=== PATIENT | female | born 1970 | race Caucasian/White ===

== ENCOUNTER 2017-09-13 11:15 | Day surgery (SDC) | payer OTHER ==
--- NOTE | 2017-09-09 14:56 | RAD REPORT ---
EXAM DESCRIPTION: RAD - Chest Pa And Lat (2 Views) - 09/09/2017 2:48 pm CLINICAL HISTORY: Abdominal pain COMPARISON: 08/11/2017 FINDINGS: The lungs are clear. The heart is normal in size. No displaced fractures. IMPRESSION: No acute or concerning finding suspected.
[2017-09-09 15:30] LABS: Absolute Lymphocytes (CBC) 1.4 K/uL (0.7-4.9); Absolute Monocytes 0.5 K/uL (0.1-1.3); Absolute Neutrophil 4.4 K/uL (1.8-8.0); Basophils % 0.3 % (0-1.3); Hematocrit 40.5 % (36.0-45.0); Lymphocytes % 21.4 % (15.3-44.8); MCV 93.8 fL (80-100); MPV 10.8 fL (7.6-11.3); Monocytes % 7.3 % (3.3-12.3); RBC Red Blood Cell Count 4.32 M/uL (3.86-4.86)
[2017-09-09 15:38] LABS: BUN Blood Urea Nitrogen 8 mg/dL (6-20); Bicarbonate 23 mEq/L (21-31); Glucose Level 97 mg/dL (65-120); Sodium Level 138 mEq/L (135-145)
[2017-09-09 15:57] LABS: Albumin 3.5 g/dL (3.2-5.5); Bilirubin Direct 0.1 mg/dL (0-0.2); Bilirubin Total 0.3 mg/dL (0.3-1.2); Protein, Total 6.3 g/dL (6.0-8.3)
--- NOTE | 2017-09-09 17:00 | EKG ---
Test Date: 2017-09-09 Test Time: 14:49:46 Spooling Supervisor: ADÁN MEASUREMENT RESULTS: Intervals: Rate: 67 SD: 136 QRSD: 80 QT: 372 QTc: 393 Addison: P: 29 SD: 136 QRS: 35 T: 41 INTERPRETIVE STATEMENTS: Normal sinus rhythm Normal ECG Compared to ECG 08/11/2017 14:58:12 No significant changes Electronically Signed On 09-09-17 16:59:42 CDT by Kale Batista
[2017-09-13] MEDS ORDERED: CIPROFLOXACIN 400mg IV 400 MG/200 ML BAG IV ONE (11:51)
[2017-09-13] MEDS ORDERED: Ringers Lactate 1,000 ML IV ONE ×2 (11:51→13:05)
[2017-09-13] MEDS ORDERED: PROPOFOL 200 MG/20 ML VIAL IV ONE (12:03)
[2017-09-13] MEDS ORDERED: LIDOCAINE 1% MPF 5 ML VIAL ONE (12:03)
[2017-09-13] MEDS ORDERED: MIDAZOLAM HCL 2 MG/2 ML INJ ONE (12:03)
[2017-09-13] MEDS ORDERED: ROCURONIUM 50 MG/5 ML VIAL IV ONE (12:03)
[2017-09-13] MEDS ORDERED: FENTANYL CITR 250 MCG/5 ML ONE (12:17)
[2017-09-13 12:18] LABS: Albumin 3.4 g/dL (3.2-5.5); Bilirubin Direct 0.1 mg/dL (0-0.2); Bilirubin Total 0.5 mg/dL (0.3-1.2); Protein, Total 6.2 g/dL (6.0-8.3)
[2017-09-13] MEDS ORDERED: EPINEPHRINE/PF 1 MG/ML AMP ONE (12:49)
[2017-09-13] MEDS ORDERED: MOXIFLOXACIN HCL 10 DROPS/ML **OR USE OPTH ONE (12:49)
[2017-09-13] MEDS ORDERED: DUOVISC 1 KIT OPTH ONE (12:50)
[2017-09-13] MEDS ORDERED: BALANCED SALT IRRIG PLAIN 500 ML BTL IRR ONE (12:50)
[2017-09-13] MEDS ORDERED: ONDANSETRON 4 MG/2 ML VIAL ONE ×2 (13:06→13:36)
[2017-09-13] MEDS ORDERED: GLYCOPYRROLATE 0.2 MG/ML SYR ONE (13:06)
[2017-09-13] MEDS ORDERED: NEOSTIGMINE 1 MG/ML -5 ML SYRINGE ONE (13:07)
[2017-09-13] MEDS: MEPERIDINE HCL 50 MG/ML AMP ONE ×2 (13:22→13:27)
[2017-09-13] MEDS: MEPERIDINE HCL 25 MG/0.5 ML ONE ×2 (13:34→13:42)
--- NOTE | 2017-09-13 13:44 | P.BOP ---
Preoperative diagnosis: acute cholecystitis, symptomatic cholelithiasis, biliary dyskinesia, obesit Postoperative diagnosis: same, intrabdominal adhesions hx of open gastric bypass Primary procedure: 1. Laparoscopic cholecystectomy Secondary procedure: 2. laparoscopic lysis of adhesions Road Patcher: Lashawn Long) Estimated blood loss: <10cc Specimen: gb Anesthesia: General Complications: None
[2017-09-13] MEDS ORDERED: HYDROCODONE/APAP 5/325 MG TAB ONE (14:16)
--- NOTE | 2017-09-14 00:36 | OP ---
Date of Procedure: 09/13/2017 Surgeon: Chris Garcia MD Novelty Maker: DERREK Bravo. Preoperative Diagnoses: Acute cholecystitis, symptomatic cholelithiasis, biliary dyskinesia, morbid obesity, status post history of open Tahmina-en-Y gastric bypass. Postoperative Diagnoses: Acute cholecystitis, symptomatic cholelithiasis, biliary dyskinesia, morbid obesity, status post history of open Tahmina-en-Y gastric bypass, plus extensive intraabdominal adhesio ns, plus ventral hernia. Procedures: 1.Laparoscopic cholecystectomy. 2.Laparoscopic lysis of adhesions. Estimated Blood Loss: Less than 10 cc. Specimen: Gallbladder. Anesthesia: General plus local. Indications: This is the case of a 47-year-old patient with the above diagnosis. Fully explained th e benefits, alternatives, and risks of laparoscopic, possible open cholecystectomy which include but are not limited to infection, bleeding, damage to adjacent structures, anesthesia complication, olayinka docholithiasis, bile leak, pancreatitis, IL, and even . She also understands this may not relie ve any symptoms. She might need more than one surgical intervention. She understood. Signed a cons ent. The patient understands she has open Tahmina-en-Y gastric bypass. We may encounter some adhesions over that area. She understand the benefits, alternatives, and risks of lysis of adhesions. She si gned a consent. Description Of Procedure: The patient was brought to the operating room, placed in the supine positi on. Anesthesia was achieved without complication. A time-out was call. Abdomen was prepped and sophia ped in usual sterile fashion. Marcaine 0.5% injected for local anesthetic, followed by sharp incisio n of the skin in the infraumbilical region. Incision was carried down to fascia, which was opened un maria l direct vision. Peritoneum was encountered, opened under direct vision. Vicryl #1 placed inside the fascia. Roxie trocar was carefully introduced. Pneumoperitoneum was obtained. After that we n oticed extensive adhesions in the right upper quadrant epigastric region where the previous surgery w as done. So, we proceeded to place another 5-mm trocar in the right upper quadrant in a clean area a nd used a LigaSure trying to remove the adhesions to at least clean the right upper quadrant. Took s ignificant amount of time to remove these adhesions. So, once we did that, we made sure there was co mplete hemostasis, once again using the LigaSure. We proceeded to put a grasper in the fundus of the gallbladder, another grasper in the infundibulum, retracted the gallbladder in the inferolateral fas hion exposing the triangle of Calot, and obtaining critical view of safety. At that moment, I procee ded to identify the cystic duct and cystic artery and isolated free circumferentially and a connectio n between those and the gallbladder was clearly identified. I proceeded to ligate those by using at least 3 clips proximal, 1 clip distal, and ligation in the middle. Same was done with the cystic art faviola. No bile leak. No bleeding. The gallbladder was removed from liver using Bovie cauterizer and removed from abdominal cavity using EndoCatch through the umbilical incision. The area was inspected once again. The area of the clips was intact. Gallbladder fossa was intact. The area of the lysis of adhesions also with no bleeding. No enterotomies. The patient has a ventral hernia, bunch of ad hesions in that region. This is wide enough that may require a mesh placement and since in this case , we have acute cholecystitis, we are afraid that the mesh we are going to use in that area may get c ontaminated. It is right now is full with some fatty omentum on it. I do not see any intestines com ing through it, so she may have to elect the resection in the next few weeks. At that moment, I proc eeded to remove the trocars under direct vision. Deflated pneumoperitoneum. Closed the fascia with #1 Vicryl, irrigated the subcutaneous tissue, closed that with 3-0 chromic, and the skin in a subcuti cular fashion with 3-0 chromic and Steri-Strips on top. Sponge count and instrument counts were correct. The patient tolerated the procedure well. The patient was sent to Recovery in stable condition. ALBA/KYM Voice ID: [id number] Report ID: [id number]
--- NOTE | 2017-09-14 00:42 | DS ---
Date of Discharge: 09/13/2017 Diagnoses: Acute cholecystitis, symptomatic cholelithiasis, biliary dyskinesia, right upper quadrant pain, morbid obesity, intraabdominal adhesions, and ventral hernia. Procedure: Laparoscopic cholecystectomy, laparoscopic lysis of adhesions. Disposition: Home. Activity: As tolerated. No heavy lifting. Followup: Follow up in my office in 1 week. Call for appointment [phone]. Discharge Instructions: Keep area dry for 48 hours, then may shower. Keep Steri-Strips intact. Medications: Include Vicodin q.4 hours p.r.n. pain and Bactrim DS p.o. b.i.d. ALBA/KYM Voice ID: [id number] Report ID: [id number]
== END 2017-09-13 14:56 | disposition home or self-care (01) ==
LOC: OR 11:15
PROVIDERS: ATTEND Surgery
PROC: 0DNW4ZZ Release Peritoneum, Percutaneous Endoscopic Approach (ICD-10-PCS; 2017-09-13)
PROC: 0FT44ZZ Resection of Gallbladder, Percutaneous Endoscopic Approach (ICD-10-PCS; principal; 2017-09-13 13:15)
DX: K80.12 Calculus of gallbladder with acute and chronic cholecystitis without obstruction (principal); K82.8 Other specified diseases of gallbladder; K66.0 Peritoneal adhesions (postprocedural) (postinfection); K43.9 Ventral hernia without obstruction or gangrene; E66.01 Morbid (severe) obesity due to excess calories; Z98.84 Bariatric surgery status; Z79.82 Long term (current) use of aspirin; Z90.710 Acquired absence of both cervix and uterus; Z80.42 Family history of malignant neoplasm of prostate; Z80.0 Family history of malignant neoplasm of digestive organs; Z82.49 Family history of ischemic heart disease and other diseases of the circulatory system
CPT/HCPCS: 36415; 71046; 80048; 80076; 82150; 83690; 85025; 88304; 93005; J0171; J0744; J2175; J2250; J2405; J2710

== ENCOUNTER 2017-11-15 07:29 | Day surgery (SDC) | payer OTHER ==
[2017-11-11 15:04] LABS: Absolute Lymphocytes (CBC) 1.5 K/uL (0.7-4.9); Absolute Monocytes 0.5 K/uL (0.1-1.3); Absolute Neutrophil 5.2 K/uL (1.8-8.0); Basophils % 0.4 % (0-1.3); Eosinophils % 4.8 % (0-4.4); Hematocrit 41.6 % (36.0-45.0); Lymphocytes % 19.6 % (15.3-44.8); MCH 30.8 pg (27.0-35.0); MCV 95.7 fL (80-100); MPV 10.5 fL (7.6-11.3); Monocytes % 6.7 % (3.3-12.3); RBC Red Blood Cell Count 4.35 M/uL (3.86-4.86)
[2017-11-11 15:25] LABS: BUN Blood Urea Nitrogen 9 mg/dL (7-18); Bicarbonate 24 mmol/L (21-32); Glucose Level 76 mg/dL (74-106); Potassium 3.8 mmol/L (3.5-5.1); Sodium Level 142 mmol/L (136-145)
[2017-11-15] MEDS ORDERED: PROPOFOL 200 MG/20 ML VIAL IV ONE (07:58)
[2017-11-15] MEDS ORDERED: MIDAZOLAM HCL 2 MG/2 ML INJ ONE (07:59)
[2017-11-15] MEDS ORDERED: GLYCOPYRROLATE 0.2 MG/ML SYR ONE ×2 (07:59→10:51)
[2017-11-15] MEDS ORDERED: LIDOCAINE 2% MPF 5 ML VIAL ONE (08:00)
[2017-11-15] MEDS ORDERED: ROCURONIUM 50 MG/5 ML VIAL IV ONE ×2 (08:01→09:14)
[2017-11-15] MEDS ORDERED: FENTANYL CITR 250 MCG/5 ML ONE (08:01)
[2017-11-15] MEDS ORDERED: NEOSTIGMINE 1 MG/ML -5 ML SYRINGE ONE (08:03)
[2017-11-15] MEDS ORDERED: ONDANSETRON HCL 40 MG/20 ML VIAL ONE (08:03)
[2017-11-15] MEDS ORDERED: CEFAZOLIN/SWI 1gm 1 GM/10 ML SYR ONE (08:26)
[2017-11-15] MEDS ORDERED: Ringers Lactate 1,000 ML IV ONE ×2 (08:26→11:09)
[2017-11-15] MEDS ORDERED: DEXAMETHASONE 10 MG/ML VIAL ONE (09:00)
[2017-11-15] MEDS ORDERED: MORPHINE 10 MG/ML VIAL ONE (10:18)
--- NOTE | 2017-11-15 10:35 | P.BOP ---
Preoperative diagnosis: incarcerated tender incisional ventral hernias, morbid obesity Postoperative diagnosis: incarcerated tender incisional multiple ventral hernias , intrabdo adhesions Primary procedure: 1. Open repair incarcerated tender incisional multiple ventral hernias Secondary procedure: 2. hernia mesh placement Other procedure(s): 3. Extensive lysis of adhesions Mineralogy Teacher: Lashawn Long) Estimated blood loss: <20cc Specimen: hernia sac Findings: as above, see dictation Anesthesia: General Complications: None Implants: [id number] ventrallight ST w echo PS Transferred to: Recovery Room Condition: Good
[2017-11-15] MEDS ORDERED: Mastisol Adhesive Liq ONE (10:43)
[2017-11-15] MEDS: MEPERIDINE HCL 50 MG/ML AMP ONE ×6 (11:09→11:45)
[2017-11-15] MEDS ORDERED: HYDROCODONE/APAP 5/325 MG TAB ONE (12:22)
--- NOTE | 2017-11-17 03:28 | OP ---
Surgeon: Chris Garcia MD Crochet Machine Operator: DERREK Bauer. Preoperative Diagnoses: Incarcerated tender incisional ventral hernia, morbid obesity. Postoperative Diagnoses: Incarcerated tender incisional multiple ventral hernia with extensive intra abdominal adhesions. Procedures: 1.Open repair of incarcerated tender incisional multiple ventral hernias with mesh, laparoscopic ass ist. 2.Extensive lysis of adhesions. Estimated Blood Loss: Less than 20 cc. Specimen: Hernia sac. Findings: The patient has a large hernia with multiple hernia just above that all with incision exte nsive intraabdominal adhesions. This patient had an open gastric bypass surgery in the past. Implan t was 15 x [address] with Echo positioning System mesh. Anesthesia: General plus local. Indications: This is the case of a female, who came to us with a large ventral hernia, getting pain and discomfort, increasing in size. She wants that repaired. Benefits, alternatives, and risks of r epair, fully explained to the patient. Laparoscopic versus open with most likely a mesh placement wh ich include, but not limited to infection, bleeding, damage to adjacent structures, anesthesia compli cations, recurrence, chronic pain, chronic numbness, PR, and even . She also understands this m ay not relieve her symptoms. She might need more than one surgical intervention. She understands th e importance of losing weight, avoid heavy lifting to diminish the chance of recurrence. She does no t understand also the pros of an intraabdominal mesh placement and discussed that with her in details and all the questions were answered to her satisfaction. The patient understood, signed consent. T he patient brought to the operating room and placed in supine position. Anesthesia was without compl ication. Abdominal area was prepped and draped in a sterile fashion. A time-out was called. An inc ision was made right over the hernia area. The patient has a previous incision in that region. The incision was carried down to fascia. We noticed a large hernia sac present with 2 all other hernias present. The hernia sac was removed. The patient had extensive intraabdominal adhesions, may have t o be addressed laparoscopically due to the extension and how lateral they are. We were able to at le ast identify the hernia that was just next to the first 1 and included not repaired, fascia edges wer e trimmed. We did lysis of adhesions in open technique. The rest will be done laparoscopically due to the extension of it. The fascia edges were then approximated with #1 PDS in a figure-eight fashio n. We held them together and enough to put a Roxie trocar over that area which allowed us to obtain pneumoperitoneum and allows also to put under direct visualization 5 mm trocars to the left side, on e on the right side. In that area also we already visualized the area that needs to be lysed of adhe sions. We are going to need a LigaSure to do so, so we opened laparoscopic LigaSure. At this moment we proceeded to do a lysis of adhesions. Using LigaSure, we spent a significant amount of time, mor e than half an hour just to do lysis of adhesions. It was done making sure that we have complete vis ualization of it and no enterotomies done. In the upper abdomen, the patient has the effect of the ga stric bypass open technique with adhesions and even stomach adhered to the anterior abdominal wall. I am glad that was just cephalad to the area where the mesh was needed, so it does not interfere with out repair, so we did not proceed to take down the stomach since this is part of the previous surgery . Once we finished lysis of adhesions that we see exactly the defects and how to overlap this at [address] st 5 cm. We proceeded then to select the mesh with 15 cm x 20 cm. Once we selected a mesh, then we just released the suture that we have placed already and we were able to remove the Roxie trocar and placed the mesh through that same incision and we tied all the sutures except 1 to allow us to final ly at the end remove the catheter that inflated the balloon of the mesh system. Once we had that one , again we were able to obtain pneumoperitoneum by holding the last suture manually and we were able to inflate the balloon. This balloon goes nice and flat, perfectly setup since we were able to remov e some of the falciform ligament with it and nice and flat to cover the entire defect for at least 5 cm. We proceeded to secure the area using a capture first in the edges and then we deflated the ball oon, removed the balloon and we continued putting the fixation to make sure no intestines goes in bet ween the edges nice and flat against the peritoneum and fascia. At that moment, then we proceeded to tie the layers of suture in that area. We noticed that it had nice buttress feel to it. We inspect ed the area of lysis of adhesions, looks intact with no bleeding. No enterotomies. At that moment, I proceeded then to remove the pneumoperitoneum under direct visualization. Trocars were removed. S ubcutaneous layers were closed with 3-0 chromic. Since the patient has multiple spaces in that area, we do not want the seroma deformed. Then, after that subcutaneous tissue with 3-0 chromic and skin approximated. Sponge count, instrument counts were correct. The patient tolerated the procedure wel l. The patient was sent to recovery in stable condition. Diagnosis: Incarcerated tender incisional ventral hernia, morbid obesity. Procedures: Open repair of incarcerated tender incisional ventral hernia, multiple with mesh laparos copic assist, extensive lysis of adhesions. Disposition: Home. Activity: As tolerated. No heavy lifting. Followup: Follow up in my office in 1 week. Call for appointment [phone]. Keep area dry for 48 ho urs, then may shower. Medications: See orders. ALBA/KYM Voice ID: [id number] Report ID: [id number]
== END 2017-11-15 13:15 | disposition home or self-care (01) ==
LOC: OR 07:29
PROVIDERS: ATTEND Surgery
PROC: 0DNW0ZZ Release Peritoneum, Open Approach (ICD-10-PCS; 2017-11-15)
PROC: 0WUF0JZ Supplement Abdominal Wall with Synthetic Substitute, Open Approach (ICD-10-PCS; principal; 2017-11-15 08:30)
DX: K43.2 Incisional hernia without obstruction or gangrene (principal); K66.0 Peritoneal adhesions (postprocedural) (postinfection); Z98.84 Bariatric surgery status; E66.01 Morbid (severe) obesity due to excess calories
CPT/HCPCS: 36415; 80048; 85025; 88302; 88305; J0690; J1100; J2175; J2250; J2405; J2710

== ENCOUNTER 2019-07-16 13:23 | Emergency (ER) | payer BC, OTHER ==
--- NOTE | 2019-07-16 15:17 | RAD REPORT ---
EXAM DESCRIPTION: Arnaud Single View07/16/2019 2:53 pm CLINICAL HISTORY: cough COMPARISON: 2017 FINDINGS: The lungs appear clear of acute infiltrate. The heart is normal size IMPRESSION: No acute abnormalities displayed
--- NOTE | 2019-07-16 16:44 | ER ---
Nurse's Notes [facility] Name: Rhea Mc Age: 49 yrs Sex: Female : 1970 Arrival Date: 07/16/2019 Time: 13:25 Bed 13 Private MD: Fabricio Cardona H Diagnosis: Superficial thrombophlebitis Presentation: 07/16 13:34 Presenting complaint: Patient states: Diagnosed with the Flu 9 days ago. Reports ca1 feeling better, went back to working out. Reports SOB more on exertion and legs giving out during and after workout. C/o of leg pain more on the R. Transition of care: patient was not received from another setting of care. Onset of symptoms was July 16, 2019. Risk Assessment: Do you want to hurt yourself or someone else? Patient reports no desire to harm self or others. Initial Sepsis Screen: Does the patient meet any 2 criteria? No. Patient's initial sepsis screen is negative. Does the patient have a suspected source of infection? No. Patient's initial sepsis screen is negative. Care prior to arrival: None. 13:34 Method Of Arrival: Ambulatory ca1 13:34 Acuity: RENA 3 ca1 Triage Assessment: 14:00 General: Appears in no apparent distress. uncomfortable, Behavior is calm, cooperative, vc appropriate for age. Pain: Denies pain. FIRER TUNNEL KILN: 13:37 LMP N/A - Hysterectomy ca1 Historical: - Allergies: 13:37 Aspirin; ca1 - Home Meds: 13:37 Ambien Oral [Active]; ca1 - PMHx: 13:37 None; ca1 - PSHx: 13:37 Hysterectomy; Gastric Bypass; Cholecystectomy; Hernia repair; ; R ankle Surg; ca1 Shoulder Surg; - Immunization history:: Adult Immunizations up to date, Flu vaccine is not up to date. - Coronavirus screen:: The patient has NOT traveled to [place] in the past 14 days. The patient has NOT had contact with known/suspected case of Coronavirus?. - Social history:: Smoking status: Patient denies any tobacco usage or history of. - Family history:: not pertinent. - Ebola Screening: : Patient negative for fever greater than or equal to 101.5 degrees Fahrenheit, and additional compatible Ebola Virus Disease symptoms Patient denies exposure to infectious person Patient denies travel to an Ebola-affected area in the 21 days before illness onset No symptoms or risks identified at this time. - Hospitalizations: : No recent hospitalization is reported. Screenin:00 Abuse screen: Denies threats or abuse. Nutritional screening: No deficits noted. vc Tuberculosis screening: No symptoms or risk factors identified. Fall Risk None identified. Assessment: 14:30 General: Appears in no apparent distress. comfortable, Behavior is calm, cooperative, vc appropriate for age. Pain: Denies pain. Neuro: Level of Consciousness is awake, alert, obeys commands. Cardiovascular: Capillary refill < 3 seconds Patient's skin is warm and dry. Respiratory: Respiratory effort is even, unlabored, Respiratory pattern is regular, symmetrical. GI: No signs and/or symptoms were reported involving the gastrointestinal system. EENT: No signs and/or symptoms were reported regarding the EENT system. Derm: Skin temperature is warm. Musculoskeletal: Range of motion: intact in all extremities. Vital Signs: 13:37 BP 178 / 101; Pulse 101; Resp 20 S; Temp 98.5(TE); Pulse Ox 97% on R/A; Weight 136.98 ca1 kg (R); Height 5 ft. 9 in. (175.26 cm) (R); 15:00 BP 168 / 86; Pulse 98; Pulse Ox 98% on R/A; vc 16:00 BP 156 / 88; Pulse 95; Pulse Ox 98% on R/A; vc 13:37 Body Mass Index 44.60 (136.98 kg, 175.26 cm) ca1 ED Course: 13:25 Patient arrived in ED. as 13:25 Fabricio Cardona DO is Private Physician. as 13:36 Triage completed. ca1 13:37 Arm band placed on right wrist. ca1 13:56 Bonnie Zavaleta, RANDAL is Primary Nurse. vc 14:00 Patient has correct armband on for positive identification. Placed in gown. vc 14:00 No provider procedures requiring assistance completed. Patient did not have IV access vc during this emergency room visit. 14:11 Nomi Jerez MD is Attending Physician. rn 15:03 XRAY Chest (1 view) In Process Unspecified. EDMS 17:00 Extremity Venous Uni Ltd US In Process Unspecified. EDMS Administered Medications: No medications were administered Outcome: 16:43 Discharge ordered by . rn 16:50 Discharged to home ambulatory, with significant other. vc 16:50 Condition: good 16:50 Discharge instructions given to patient, Instructed on discharge instructions. 16:58 Patient left the ED. vc Signatures: Dispatcher [employer] Naty Strong Roman, MD MD rn Luz, Cleo RN RN Bonnie Celis RN RN vc
--- NOTE | 2019-07-16 16:44 | EDPHYS ---
Physician Documentation [facility] Name: Rhea Mc Age: 49 yrs Sex: Female : 1970 Arrival Date: 07/16/2019 Time: 13:25 Bed 13 Private MD: Fabricio Cardona H ED Physician Nomi Jerez HPI: 07/16 15:07 This 49 yrs old Female presents to ER via Ambulatory with complaints of rn Shortness Of Breath, Knee Swelling. 15:08 The patient presents with pain, swelling. The complaints affect the posterior aspect of rn left knee. Onset: The symptoms/episode began/occurred This week. Modifying factors: the symptoms are aggravated by movement, bending knee. Severity of symptoms: At their worst the symptoms were moderate, in the emergency department the symptoms are unchanged. The patient has not experienced similar symptoms in the past. Reports sick with flu and in bed for days last week, feels better, still coughing and a little sob, but here mainly for left leg pain behind left knee. Reports not sure if her varicose veins or blood clot. Also reports just started new exercise regimen. Feels swelling and pain behind left knee. No bony injury. Hurts upon palpation and with bending knee. No swelling below the knee. . 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 - Coronavirus screen:: The patient has NOT traveled to [place] in the past 14 days. The patient has NOT had contact with known/suspected case of Coronavirus?. - Social history:: Smoking status: Patient denies any tobacco usage or history of. - Family history:: not pertinent. - Ebola Screening: : Patient negative for fever greater than or equal to 101.5 degrees Fahrenheit, and additional compatible Ebola Virus Disease symptoms Patient denies exposure to infectious person Patient denies travel to an Ebola-affected area in the 21 days before illness onset No symptoms or risks identified at this time. - Hospitalizations: : No recent hospitalization is reported. ROS: 15:08 Constitutional: Negative for fever, chills, and weight loss, Eyes: Negative for injury, rn pain, redness, and discharge, Cardiovascular: Negative for chest pain, palpitations, and edema, Respiratory: + cough, neg for hemoptysis Abdomen/GI: Negative for abdominal pain, nausea, vomiting, diarrhea, and constipation, MS/Extremity: + pain and swelling behind left knee Skin: Negative for injury Neuro: Negative for headache, weakness, numbness, tingling, and seizure. Exam: 15:08 Constitutional: This is a well developed, well nourished patient who is awake, alert, rn and in no acute distress. Cardiovascular: Regular rate and rhythm. No pulse deficits. Respiratory: Speaking full sentences, clear bilateral breath sounds MS/ Extremity: Pulses equal, no cyanosis. Neurovascular intact. Equal circumference. + mild tenderness behind left knee with mild swelling and tenderness superficially with warmth, no sharply demarcated line. Vital Signs: 13:37 BP 178 / 101; Pulse 101; Resp 20 S; Temp 98.5(TE); Pulse Ox 97% on R/A; Weight 136.98 ca1 kg (R); Height 5 ft. 9 in. (175.26 cm) (R); 15:00 BP 168 / 86; Pulse 98; Pulse Ox 98% on R/A; vc 16:00 BP 156 / 88; Pulse 95; Pulse Ox 98% on R/A; vc 13:37 Body Mass Index 44.60 (136.98 kg, 175.26 cm) ca1 MDM: 14:11 Patient medically screened. rn 16:40 ED course: Delay due to waiting for ultrasound > 2 hours to get study done.. rn 16:41 Differential diagnosis: superficial thrombophlebitis, DVT, marrero's cyst. Data reviewed: rn vital signs, nurses notes, radiologic studies, doppler, plain films, and as a result, I will discharge patient. Counseling: I had a detailed discussion with the patient and/or guardian regarding: the historical points, exam findings, and any diagnostic results supporting the discharge/admit diagnosis, radiology results, the need for outpatient follow up, to return to the emergency department if symptoms worsen or persist or if there are any questions or concerns that arise at home. Special discussion: I discussed with the patient/guardian in detail that at this point there is no indication for admission to the hospital. It is understood, however, that if the symptoms persist or worsen the patient needs to return immediately for re-evaluation. ED course: U/S neg for dvt for cyst. + evidence of superficial clot in varicose veins, consistent with thrombophlebitis. Will dc home with anti-inflammatories and warm compress. . 07/16 14:24 Order name: Extremity Venous Uni Ltd US rn 07/16 14:24 Order name: XRAY Chest (1 view); Complete Time: 16:43 rn Administered Medications: No medications were administered Disposition: 07/16/19 16:43 Discharged to Home. Impression: Superficial thrombophlebitis. - Condition is Stable. - Discharge Instructions: Phlebitis. - Medication Reconciliation Form, Thank You Letter, Antibiotic Education, Prescription Opioid Use form. - Follow up: Private Physician; When: As needed; Reason: Recheck today's complaints, Re-evaluation by your physician. - Problem is an ongoing problem. - Symptoms are unchanged. Signatures: Dispatcher [employer] EDMS Nomi Jerez MD MD rn Luz, RANDAL Gallo RN ca1 Bonnie Zavaleta RN RN vc Corrections: (The following items were deleted from the chart) 16:58 16:43 07/16/2019 16:43 Discharged to Home. Impression: Superficial thrombophlebitis. vc Condition is Stable. Forms are Medication Reconciliation Form, Thank You Letter, Antibiotic Education, Prescription Opioid Use. Follow up: Private Physician; When: As needed; Reason: Recheck today's complaints, Re-evaluation by your physician. Problem is an ongoing problem. Symptoms are unchanged. rn
--- NOTE | 2019-07-16 17:00 | RAD REPORT ---
EXAM DESCRIPTION: USExtremity Venous Uni Ltd07/16/2019 4:46 pm CLINICAL HISTORY: left leg pain and swelling. COMPARISON: None. FINDINGS: Left common femoral, superficial femoral, popliteal and posterior tibial veins are compre ssible and demonstrate augmentation. Doppler demonstrates good flow. Acute thrombus is present within varicose veins of the medial calf IMPRESSION: No evidence of deep venous thrombosis involving the left lower extremity.
[2019-07-16 17:24] VITALS: BP 178/101; TEMP 98.5; O2SAT 97
== END 2019-07-16 16:58 | disposition home or self-care (01) ==
LOC: ER 13:23
DX: I80.9 Phlebitis and thrombophlebitis of unspecified site (principal); Z88.6 Allergy status to analgesic agent
CPT/HCPCS: 71045; 93971; 99283

== ENCOUNTER 2021-01-16 18:14 | Inpatient (IN) | payer BC ==
[2021-01-16 23:09] LABS: Absolute Lymphocytes (CBC) 1.7 K/uL (0.7-4.9); Basophils % 0.4 % (0-1.3); Hematocrit 37.7 % (36.0-45.0); MPV 7.8 fL (7.6-11.3); RBC Red Blood Cell Count 3.48 M/uL (3.86-4.86)
[2021-01-16 23:10] LABS: Protime INR 0.9
[2021-01-16 23:58] LABS: ALT/SGPT 38 U/L (12-78); AST/SGOT 27 U/L (15-37); Albumin 3.6 g/dL (3.4-5.0); Alkaline Phosphatase 80 U/L (45-117); BUN Blood Urea Nitrogen 9 mg/dL (7-18); Bicarbonate 29 mmol/L (21-32); Bilirubin Direct 0.1 mg/dL (0-0.2); Bilirubin Total 0.4 mg/dL (0.2-1.0); Glucose Level 96 mg/dL (74-106); Magnesium 2.1 mg/dL (1.8-2.4); NT PRO-BNP 45 pg/mL (<125); Potassium 3.2 mmol/L (3.5-5.1); Protein, Total 6.9 g/dL (6.4-8.2); Sodium Level 140 mmol/L (136-145); Troponin (Emerg Dept Use Only) < 0.02 ng/mL (0.0-0.045)
[2021-01-17 00:01] LABS: Blood Morphology Comment NOTED (NOT SEEN); Macrocytosis 1+; Platelet Estimate ADEQ; Stomatocytes 1+; White Blood Cell Scan OK (OK)
[2021-01-17 00:22] LABS: Urine Blood Trace-intact (Negative); Urine Glucose Negative (Negative); Urine Protein Negative (Negative); Urine Specific Gravity 1.015 (1.005-1.030)
[2021-01-17 01:36] LABS: Urine Specific Gravity/Preg 1.015 (1.005-1.030)
--- NOTE | 2021-01-17 01:40 | EDPHYS ---
Physician Documentation [facility] Name: Rhea Mc Age: 50 yrs Sex: Female : 1970 Arrival Date: 01/16/2021 Time: 18:14 Bed 14 Private MD: ED Physician Nomi Jerez HPI: 01/16 22:10 This 50 yrs old Female presents to ER via Ambulatory with complaints of dvt cp in l leg, Shortness Of Breath. 22:10 The patient has shortness of breath with light activity. Onset: The symptoms/episode cp began/occurred yesterday. Duration: The symptoms are continuous, and are steadily getting worse. Reports pain to left lower leg for the past week. Patient reports having ultrasound ordered by Dr. Cardona performed earlier today that showed she had a DVT left lower leg. Patient reports she was prescribed Xarelto which she had not picked up from the pharmacy as of yet. Patient reports she came to the ER because she has been having increasing shortness of breath since yesterday. Denies chest pain, but reports shortness of breath with minimal exertion.. 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 - Social history:: Smoking status: Patient denies any tobacco usage or history of. Patient uses alcohol, only on a social basis. Patient/guardian denies using The patient lives with spouse. - Family history:: not pertinent. - Code Status:: Full code. - Coronavirus screen:: The patient has NOT traveled to [place] in the past 14 days. The patient has NOT had contact with known/suspected case of Coronavirus?. - Ebola Screening: : Patient negative for fever greater than or equal to 101.5 degrees Fahrenheit, and additional compatible Ebola Virus Disease symptoms Patient denies exposure to infectious person Patient denies travel to an Ebola-affected area in the 21 days before illness onset No symptoms or risks identified at this time. ROS: 22:15 Constitutional: Negative for body aches, chills, fever, poor PO intake. cp 22:15 Respiratory: Positive for shortness of breath, at rest. Negative for cough, wheezing. cp 22:15 Abdomen/GI: Negative for abdominal pain, nausea, vomiting, and diarrhea. Exam: 22:20 Constitutional: The patient appears in no acute distress, alert, awake, cp non-diaphoretic, non-toxic, well developed, well nourished, obese. 22:20 Head/Face: Normocephalic, atraumatic. cp 22:20 Eyes: Periorbital structures: appear normal, Conjunctiva: normal, no exudate, no injection, Sclera: no appreciated abnormality, Lids and lashes: appear normal, bilaterally. 22:20 ENT: External ear(s): are unremarkable, Nose: is normal, Mouth: Lips: moist, Oral mucosa: moist, Posterior pharynx: Airway: no evidence of obstruction, patent. 22:20 Neck: ROM/movement: is normal, is supple, without pain, no range of motions limitations. 22:20 Chest/axilla: Inspection: normal, Palpation: is normal, no crepitus, no tenderness. 22:20 Cardiovascular: Rate: normal, Rhythm: regular, Edema: is not appreciated, JVD: is not appreciated. 22:20 Respiratory: the patient does not display signs of respiratory distress, Respirations: labored breathing, that is mild, intercostal retractions, are absent, shallow respirations, that is mild, Breath sounds: are clear throughout, no decreased breath sounds, no stridor, no wheezing. 22:20 Abdomen/GI: Exam negative for discomfort, distension, guarding, Inspection: abdomen appears normal. 22:20 Back: pain, is absent, ROM is normal. 22:20 Musculoskeletal/extremity: DVT Exam: pain, of the left lower leg, swelling, that is mild, of the left lower leg, tenderness, that is mild, of the left lower leg, positive Homans' sign noted on exam. 22:20 Skin: no rash present. 22:20 Neuro: Orientation: to person, place \T\ time. Mentation: is normal, Cerebellar function: is grossly normal, Motor: moves all fours, strength is normal, Sensation: is normal. 22:30 ECG was reviewed by the Attending Physician. 01/17 02:20 ECG was reviewed by the Attending Physician. rn Vital Signs: 01/16 19:36 BP 146 / 74; Pulse 86; Resp 18; Temp 98.7; Pulse Ox 100% on R/A; Weight 165.11 kg; wg Height 5 ft. 9 in. (175.26 cm); Pain 2/10; 22:55 BP 134 / 88; Pulse 87; Resp 18; Pulse Ox 96% on R/A; 3 01/17 03:11 BP 125 / 68; Pulse 82; Resp 18; Pulse Ox 96% on R/A; [facility] 01/16 19:36 Body Mass Index 53.75 (165.11 kg, 175.26 cm) wg MDM: 01/16 22:01 Patient medically screened. 01/17 01:30 Data reviewed: vital signs, nurses notes, lab test result(s), EKG, radiologic studies, cp CT scan, plain films. 01:30 Test interpretation: by ED physician or midlevel provider: ECG, plain radiologic cp studies. Counseling: I had a detailed discussion with the patient and/or guardian regarding: the historical points, exam findings, and any diagnostic results supporting the discharge/admit diagnosis, lab results, radiology results, the need for further work-up and treatment in the hospital. Physician consultation: Samson PRO was contacted at 01:30, regarding admission, to the telemetry unit. patient's condition. 01/16 22:08 Order name: Basic Metabolic Panel 01/16 22:08 Order name: CBC with Diff; Complete Time: 00:51 01/17 00:51 Interpretation: Normal except: RBC 3.48; MCV 108.2; MCH 37.3; RDW 16.7. 01/16 22:08 Order name: LFT's; Complete Time: 00:51 01/16 22:08 Order name: Magnesium; Complete Time: 00:51 01/16 22:08 Order name: NT PRO-BNP; Complete Time: 00:51 01/16 22:08 Order name: PT-INR; Complete Time: 00:51 01/16 22:08 Order name: Troponin (emerg Dept Use Only); Complete Time: 00:51 01/16 22:08 Order name: XRAY Chest (1 view) 01/16 22:08 Order name: Basic Metabolic Panel; Complete Time: 00:51 EDDC 01/16 23:44 Order name: CBC Smear Scan; Complete Time: 00:51 EDMS 01/17 00:22 Order name: Urine Dipstick-Ancillary EDDC 01/17 00:23 Order name: Urine --Ancillary (enter results) tt3 01/17 01:20 Order name: SARS-COV-2 RT PCR EDDC 01/16 22:08 Order name: EKG; Complete Time: 22:09 cp 01/16 22:08 Order name: Cardiac monitoring; Complete Time: 22:38 cp 01/16 22:08 Order name: EKG - Nurse/Tech; Complete Time: 22:38 cp 01/16 22:08 Order name: IV Saline Lock; Complete Time: 22:38 cp 01/16 22:08 Order name: Labs collected and sent; Complete Time: 22:54 cp 01/16 22:08 Order name: O2 Per Protocol; Complete Time: 22:39 cp 01/16 22:08 Order name: O2 Sat Monitoring; Complete Time: 22:39 cp 01/16 22:08 Order name: CT Chest For PE Angio 01/17 01:13 Order name: Misc. Order: ambulate with pulse ox; Complete Time: 02:54 cp EC/26 22:30 Rate is 90 beats/min. Rhythm is regular. ME interval is normal. QRS interval is normal. cp QT interval is normal. Interpreted by me. Reviewed by me. 01/17 02:20 Rate is 90 beats/min. Rhythm is regular. QRS Vantage is Normal. ME interval is normal. QRS rn interval is normal. QT interval is normal. No Q waves. T waves are Normal. No ST changes noted. Clinical impression: Normal ECG. Interpreted by me. Reviewed by me. Administered Medications: 02:58 Drug: Lovenox (enoxaparin) 150 mg Route: Sub-Q; Site: abdomen; 3 03:11 Follow up: Response: No adverse reaction 3 Disposition: 04:43 Co-signature as Attending Physician, Nomi Jerez MD I agree with the assessment and rn plan of care. Attestation: The patient's history, exam findings, diagnostics, and a summary of any interventions or procedures was reviewed in detail with Vincent PRO. Disposition Summary: 01/17/21 01:39 Hospitalization Ordered Hospitalization Status: Inpatient Admission cp Provider: Samson Muñiz cp Location: Telemetry/MedSurg (Inpatient) cp Condition: Stable cp Problem: new cp Symptoms: have improved cp Bed/Room Type: Standard cp Room Assignment: 208(01/17/21 02:52) tl1 Diagnosis - Acute embolism and thrombosis of other specified deep vein of left lower extremity cp - Pulmonary embolism without acute cor pulmonale cp Forms: - Medication Reconciliation Form cp - SBAR form cp Signatures: Dispatcher [employer] EDMS Nomi Jerez MD MD rn Dionne Garcia RN RN tl1 Vincent Martin PA PA cp Hardee, Latisha, RN RN 3 Mitch Sheikh Corrections: (The following items were deleted from the chart) 01/16 22:57 22:10 CORONAVIRUS+MR.LAB.BRZ ordered. EDDC EDDC 01/17 02:52 01:39 cp tl1
--- NOTE | 2021-01-17 01:40 | ER ---
Nurse's Notes [facility] Name: Rhea Mc Age: 50 yrs Sex: Female : 1970 Arrival Date: 01/16/2021 Time: 18:14 Bed 14 Private MD: Diagnosis: Acute embolism and thrombosis of other specified deep vein of left lower extremity;Pulmonary embolism without acute cor pulmonale Presentation: 01/16 19:36 Chief complaint: Patient states: Pt states she was here this morning for a doppler and wg was later called and told she had a DVT in her left leg. Pt states she was prescribed Xarelto but hasn't filled the prescription. Pt states she has felt anxious and SOB on exertion. Pt denies SOB at rest. Denies CP, N/V, dizziness, Abd pain or headache. Pt c/o soreness to left leg. + circulation to LLE. Skin pink warm dry. Pt states she was just concerned that perhaps the clot could be related to her SOB on exertion. Coronavirus screen: Client denies travel out of the [place] in the last 14 days. At this time, the client does not indicate any symptoms associated with coronavirus-19. The client reports previous COVID testing was negative. Date of collection: October 2020. Ebola Screen: Patient negative for fever greater than or equal to 101.5 degrees Fahrenheit, and additional compatible Ebola Virus Disease symptoms Patient denies exposure to infectious person. Patient denies travel to an Ebola-affected area in the 21 days before illness onset. No symptoms or risks identified at this time. Initial Sepsis Screen: Does the patient meet any 2 criteria? No. Patient's initial sepsis screen is negative. Does the patient have a suspected source of infection? No. Patient's initial sepsis screen is negative. Risk Assessment: Do you want to hurt yourself or someone else? Patient reports no desire to harm self or others. Onset of symptoms was January 16, 2021 at 10:00. Care prior to arrival: None. Activity prior to arrival: None. Mechanism of Injury: No Mechanism of Injury. 19:36 Method Of Arrival: Ambulatory wg 19:36 Acuity: RENA 3 wg Triage Assessment: 19:44 General: Appears in no apparent distress. well groomed, Behavior is calm, cooperative, wg anxious. Pain: Pain currently is 2 out of 10 on a pain scale. EENT: No deficits noted. Neuro: No deficits noted. Cardiovascular: No deficits noted. Respiratory: Reports shortness of breath on exertion Onset: The symptoms/episode began/occurred this morning, the patient has mild shortness of breath. GI: No deficits noted. : No deficits noted. Derm: No deficits noted. Musculoskeletal: No deficits noted. 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 - Social history:: Smoking status: Patient denies any tobacco usage or history of. Patient uses alcohol, only on a social basis. Patient/guardian denies using The patient lives with spouse. - Family history:: not pertinent. - Code Status:: Full code. - Coronavirus screen:: The patient has NOT traveled to [place] in the past 14 days. The patient has NOT had contact with known/suspected case of Coronavirus?. - Ebola Screening: : Patient negative for fever greater than or equal to 101.5 degrees Fahrenheit, and additional compatible Ebola Virus Disease symptoms Patient denies exposure to infectious person Patient denies travel to an Ebola-affected area in the 21 days before illness onset No symptoms or risks identified at this time. Screenin:56 Abuse screen: Denies threats or abuse. Nutritional screening: No deficits noted. 3 Tuberculosis screening: No symptoms or risk factors identified. Fall Risk IV access (20 points). Assessment: 22:56 Cardiovascular: No deficits noted. Rhythm is regular. Respiratory: Airway is patent lh3 Respiratory effort is even, unlabored, Vital Signs: 19:36 BP 146 / 74; Pulse 86; Resp 18; Temp 98.7; Pulse Ox 100% on R/A; Weight 165.11 kg; wg Height 5 ft. 9 in. (175.26 cm); Pain 2/10; 22:55 BP 134 / 88; Pulse 87; Resp 18; Pulse Ox 96% on R/A; 3 01/17 03:11 BP 125 / 68; Pulse 82; Resp 18; Pulse Ox 96% on R/A; 3 01/16 19:36 Body Mass Index 53.75 (165.11 kg, 175.26 cm) ED Course: 01/16 18:14 Patient arrived in ED. as 19:44 Triage completed. 19:44 Arm band placed on left wrist. wg 21:51 Vincent Martin PA is PHCP. cp 21:51 Nomi Jerez MD is Attending Physician. cp 22:02 Cookie Morris, RANDAL is Primary Nurse. lh3 22:43 XRAY Chest (1 view) In Process Unspecified. EDMS 22:54 Basic Metabolic Panel Sent. lh3 22:54 Basic Metabolic Panel Sent. lh3 22:54 CBC with Diff Sent. lh3 22:55 LFT's Sent. lh3 22:55 Magnesium Sent. lh3 22:55 NT PRO-BNP Sent. lh3 22:55 PT-INR Sent. lh3 22:55 Troponin (emerg Dept Use Only) Sent. lh3 22:56 Patient has correct armband on for positive identification. Placed in gown. Bed in low lh3 position. Call light in reach. 22:56 No provider procedures requiring assistance completed. Inserted saline lock: 20 gauge lh3 in right forearm, using aseptic technique. 01/17 00:27 CT Chest For PE Angio In Process Unspecified. EDMS 01:38 Samson Muñiz PA is Hospitalizing Provider. cp 03:12 Patient admitted, IV remains in place. 3 Administered Medications: 02:58 Drug: Lovenox (enoxaparin) 150 mg Route: Sub-Q; Site: abdomen; 3 03:11 Follow up: Response: No adverse reaction 3 Outcome: 01:39 Decision to Hospitalize by Provider. cp 03:09 Admitted to Med/surg accompanied by nurse, via wheelchair, room 208, Report called to 3 RANDAL [place] 03:09 Condition: good 03:09 Discharge instructions given to patient, Instructed on the need for admit, Demonstrated understanding of 03:34 Patient left the ED. 3 Signatures: Dispatcher [employer] EDMS Naty Garcia as Vincent Martin PA PA cp Hardee, Latisha RN RN 3 Mitch Sheikh Corrections: (The following items were deleted from the chart) 01/16 22:57 22:54 CORONAVIRUS+MRMARIANNE drawn and sent. [facility] EDMS
[2021-01-17] MEDS ORDERED: ENOXAPARIN 100 MG/ML SYR SQ ONE (03:14)
[2021-01-17] MEDS ORDERED: ENOXAPARIN 60 MG/0.6 ML SQ ONE (03:15)
[2021-01-17] MEDS ORDERED: HYDRALAZINE HCL 20 MG/ML VIAL IV PRN (03:45)
[2021-01-17] MEDS ORDERED: ONDANSETRON 4 MG/2 ML VIAL IV PRN (03:45)
[2021-01-17] MEDS ORDERED: ZOLPIDEM TARTRATE 5 MG TABLET PO PRN (03:45)
[2021-01-17] MEDS ORDERED: ACETAMINOPHEN 500 MG TAB PO PRN (03:45)
[2021-01-17] MEDS: lisinopriL 10 MG TAB PO SCH ×2 (03:56→21:33)
--- NOTE | 2021-01-17 04:08 | P.HP ---
Certification for Inpatient Patient admitted to: Inpatient With expected LOS: <2 Midnights Patient will require the following post-hospital care: None Practitioner: I am a practitioner with admitting privileges, knowledge of patient current condition, hospital course, and medical plan of care. Services: Services provided to patient in accordance with Admission requirements found in Title 42 Section 412.3 of the Code of Federal Regulations Patient History Date of Service: 01/17/21 Allergies aspirin Allergy (Verified 11/11/17 14:19) Hives strawberry Allergy (Verified 11/11/17 14:19) blisters on tongue Home Medications: Zolpidem Tartrate [Ambien] 10 mg PO BEDTIME PRN PRN 09/09/17 Sulfamethoxazole/Trimethoprim [Bactrim Ds Tablet] 1 each PO BID #10 tablet 11/15/17 Physical Examination - Vital Signs Temperature: 98.7 F Blood Pressure: 125/68 Pulse: 82 Respirations: 18 - Studies Laboratory Data (last 24 hrs) 01/16/21 22:46: PT 10.3, INR 0.90 01/16/21 22:46: WBC 6.40, Hgb 13.0, Hct 37.7, Plt Count 250 01/16/21 22:46: Sodium 140, Potassium 3.2 L, BUN 9, Creatinine 0.61, Glucose 96, Magnesium 2.1, Total Bilirubin 0.4, AST 27, ALT 38, Alkaline Phosphatase 80 Assessment and Plan - Advance Directives Does patient have a Living Will: No Does patient have a Durable POA for Healthcare: No
--- NOTE | 2021-01-17 04:13 | P.HP ---
Certification for Inpatient Patient admitted to: Inpatient With expected LOS: <2 Midnights Patient will require the following post-hospital care: None Practitioner: I am a practitioner with admitting privileges, knowledge of patient current condition, hospital course, and medical plan of care. Services: Services provided to patient in accordance with Admission requirements found in Title 42 Section 412.3 of the Code of Federal Regulations <Samson Muñiz Tigre - Last Filed: 01/17/21 04:08> Patient History Date of Service: 01/17/21 Primary Care Provider: Brendan Reason for admission: PE, DVT History of Present Illness: Ms. Mc is a 50 yo obese F with HTN who presents with increasing SOB. Yesterday, she had a venous doppler U/S of her lower extremities done which detected a DVT in the left calf posterior tibial vein. She was prescribed Xarelto by her PCP and was to pick it up from the pharmacy. At home she began to feel anxious and SOB. She noted that she had had increasing MONTANEZ over the past few days. CTPE returned bilateral pulmonary embolic disease with lower lobe predominance. She received full dose Lovenox in the ED. - Past Medical/Surgical History -: HTN -: olayinka - Family History Mother -: Hypertension, Diabetes, Stroke Father -: Cancer - Social History Smoking Status: Never smoker Alcohol use: Yes CD- Drugs: No Caffeine use: Yes Place of Residence: Home <Samson Muñiz - Last Filed: 01/17/21 04:08> Date of Service: 01/17/21 <Mitul Floyd - Last Filed: 01/19/21 08:34> Allergies aspirin Allergy (Verified 11/11/17 14:19) Hives strawberry Allergy (Verified 11/11/17 14:19) blisters on tongue Home Medications: Zolpidem Tartrate [Ambien] 10 mg PO BEDTIME PRN PRN 09/09/17 Amoxicillin [Amoxil] 1 tab PO BID 01/17/21 Duloxetine HCl [Cymbalta] 30 mg PO DAILY 01/17/21 Lisinopril [Zestril] 1 tab PO BEDTIME 01/17/21 Triamterene/Hydrochlorothiazid [Triamterene-Hctz 37.5-25 mg Tb] 1 tab PO DAILY 08/27/21 Review of Systems 10-point ROS is otherwise unremarkable Respiratory: Shortness of Breath, SOB with Excertion Musculoskeletal: Leg Pain <Samson Muñiz - Last Filed: 01/17/21 04:08> Physical Examination - Vital Signs Temperature: 98.7 F Blood Pressure: 125/68 Pulse: 82 Respirations: 18 - Physical Exam General: Alert, In no apparent distress HEENT: Atraumatic, PERRLA, Mucous membr. moist/pink, EOMI, Sclerae nonicteric Neck: Supple, 2+ carotid pulse no bruit, No LAD, Without JVD or thyroid abnormality Respiratory: Clear to auscultation bilaterally, Normal air movement Cardiovascular: Regular rate/rhythm, Normal S1 S2 Gastrointestinal: Normal bowel sounds, No tenderness Musculoskeletal: Erythema, Tenderness Integumentary: Tenderness/swelling Neurological: Normal speech, Normal strength at 5/5 x4 extr, Normal tone, Normal affect Lymphatics: No axilla or inguinal lymphadenopathy - Studies Laboratory Data (last 24 hrs) 01/16/21 22:46: PT 10.3, INR 0.90 01/16/21 22:46: WBC 6.40, Hgb 13.0, Hct 37.7, Plt Count 250 01/16/21 22:46: Sodium 140, Potassium 3.2 L, BUN 9, Creatinine 0.61, Glucose 96, Magnesium 2.1, Total Bilirubin 0.4, AST 27, ALT 38, Alkaline Phosphatase 80 <Samson Muñiz - Last Filed: 01/17/21 04:08> Assessment and Plan - Problems (Diagnosis) (1) HTN (hypertension) Current Visit: Yes Status: Chronic Qualifiers: Hypertension type: primary hypertension Qualified Code(s): I10 - Essential (primary) hypertension (2) DVT (deep venous thrombosis) Current Visit: Yes Status: Acute Qualifiers: DVT location: lower extremity Affected thrombotic vein of extremity: tibial Chronicity: acute Laterality: left Qualified Code(s): I82.442 - Acute embolism and thrombosis of left tibial vein (3) Pulmonary embolism Current Visit: Yes Status: Acute Qualifiers: Pulmonary embolism type: multiple subsegmental (without acute cor pulmonale) Qualified Code(s): I26.94 - Multiple subsegmental pulmonary emboli without acute cor pulmonale - Plan continue full dose lovenox q12 hours reconcile and continue home medications potassium replacement folate and b12 levels pending dietitian consulted Discharge Plan: Home Plan to discharge in: 48 Hours - Advance Directives Does patient have a Living Will: No Does patient have a Durable POA for Healthcare: No - Code Status/Comfort Care Code Status Assessed: Yes (full code ) Critical Care: No Time Spent Managing Pts Care (In Minutes): 70 <AntoninoSamson Tigre - Last Filed: 01/17/21 04:08> - Problems (Diagnosis) (1) Pulmonary embolism Current Visit: Yes Status: Acute (2) Pleuritic chest pain Current Visit: Yes Status: Acute (3) DVT (deep venous thrombosis) Current Visit: Yes Status: Acute Qualifiers: DVT location: lower extremity Affected thrombotic vein of extremity: tibial Chronicity: acute Laterality: left Qualified Code(s): I82.442 - Acute embolism and thrombosis of left tibial vein (4) HTN (hypertension) Current Visit: Yes Status: Chronic Qualifiers: Hypertension type: primary hypertension Qualified Code(s): I10 - Essential (primary) hypertension <Mitul Floyd - Last Filed: 01/19/21 08:34> Date of Service: 01/17/21 Subjective Agree with plan of care as mentioned above Review of Systems 10-point ROS is otherwise unremarkable Physical Examination - Vital Signs Reviewed - Physical Exam General: Alert, In no apparent distress, Oriented x3 Respiratory: Clear to auscultation bilaterally, Normal air movement Cardiovascular: Regular rate/rhythm, Normal S1 S2 Gastrointestinal: Normal bowel sounds, No tenderness Neurological: Normal speech, Normal tone, Normal affect Assessment & Plan - Problems (Diagnosis) (1) Pulmonary embolism Current Visit: Yes Status: Acute (2) Pleuritic chest pain Current Visit: Yes Status: Acute (3) DVT (deep venous thrombosis) Current Visit: Yes Status: Acute Qualifiers: DVT location: lower extremity Affected thrombotic vein of extremity: tibial Chronicity: acute Laterality: left Qualified Code(s): I82.442 - Acute embolism and thrombosis of left tibial vein (4) HTN (hypertension) Current Visit: Yes Status: Chronic Qualifiers: Hypertension type: primary hypertension Qualified Code(s): I10 - Essential (primary) hypertension - Plan Plan: 1. Continue with anti coagulation 2. Continue with pain control 3. Gentle hydration 4. Out of bed and ambulate 5. Hypercoagulable workup-patient has multiple brothers with blood clots. 6. GI and DVT prophylaxis Discharge Plan: Home Plan to discharge in: Greater than 2 days - Advance Directives Does patient have a Living Will: No Does patient have a Durable POA for Healthcare: No - Code Status/Comfort Care Code Status Assessed: Yes Code Status: Full Code Critical Care: No Time Spent Managing PTS Care (In Minutes): 35 <Mitul Floyd - Last Filed: 01/19/21 08:34>
[2021-01-17] MEDS: ZOLPIDEM TARTRATE 5 MG TABLET PO PRN ×2 (04:17→21:36)
[2021-01-17 06:21] LABS: Absolute Lymphocytes (CBC) 1.9 K/uL (0.7-4.9); Basophils % 0.3 % (0-1.3); Hematocrit 35.7 % (36.0-45.0); Lymphocytes % 31.4 % (15.3-44.8); MPV 7.7 fL (7.6-11.3)
--- NOTE | 2021-01-17 07:10 | RAD REPORT ---
EXAM DESCRIPTION: RAD - Chest Single View - 01/16/2021 10:43 pm CLINICAL HISTORY: SOB COMPARISON: Chest Single View dated 07/16/2019; Chest Pa And Lat (2 Views) dated 09/09/2017; Chest Sin gle View dated 08/11/2017 FINDINGS: No evidence of edema or pneumonia. The heart size is within normal limits.No acute osseous abnormality. No significant pleural effusions or pneumothorax. IMPRESSION: No acute cardiopulmonary disease.
[2021-01-17 07:15] LABS: ALT/SGPT 34 U/L (12-78); AST/SGOT 26 U/L (15-37); Albumin 3.2 g/dL (3.4-5.0); Alkaline Phosphatase 71 U/L (45-117); BUN Blood Urea Nitrogen 7 mg/dL (7-18); Bicarbonate 29 mmol/L (21-32); Bilirubin Total 0.4 mg/dL (0.2-1.0); Folic Acid, (Folate) 6.7 ng/mL (3.1-17.5); Glucose Level 103 mg/dL (74-106); HDL Cholesterol 67 mg/dL (40-60); LDL Cholesterol, Calculated 118 (<130); Phosphorus 3.5 mg/dL (2.5-4.9); Potassium 3.1 mmol/L (3.5-5.1); Protein, Total 6.4 g/dL (6.4-8.2); Sodium Level 140 mmol/L (136-145)
[2021-01-17] MEDS ORDERED: POTASSIUM CL SA 10 MEQ TAB PO ONE ×3 (07:38→20:00)
[2021-01-17 08:05] VITALS: BMI 53.7
[2021-01-17] MEDS ORDERED: ENOXAPARIN 30 MG/0.3 ML SQ SCH ×2 (09:00)
[2021-01-17] MEDS: ENOXAPARIN 30 MG/0.3 ML SQ SCH (13:45)
--- NOTE | 2021-01-17 20:42 | RAD REPORT ---
EXAM DESCRIPTION: CT - Chest For Pe Angio - 01/17/2021 6:51 am CLINICAL HISTORY: The patient is 50 years old and is Female; SOB TECHNIQUE: Axial computed tomographic angiography images of the chest with intravenous contrast. S agittal and coronal reformatted images were created and reviewed. This CT exam was performed using one or more of the following dose reduction techniques: automated exposure control, adjustment of t he mA and/or kV according to patient size, and/or use of iterative reconstruction technique. MIP reconstructed images were created and reviewed. COMPARISON: 08/11/2017 FINDINGS: ARTIFACTS: Motion artifact degrades image quality and limits evaluation of segmental and subsegmental vessels. PULMONARY ARTERIES: Numerous bilateral pulmonary arterial filling defects with a lower lobe predo minance. This includes the right main and bilateral descending pulmonary arteries. AORTA: No acute findings. No thoracic aortic aneurysm. LUNGS: No focal consolidation. PLEURAL SPACE: Unremarkable. No significant effusion. No pneumothorax. HEART: Unremarkable. No cardiomegaly. No significant pericardial effusion. No evidence of R V dysfunction. BONES/JOINTS: Multilevel spondylosis. No acute fracture. No dislocation. SOFT TISSUES: Unremarkable. LYMPH NODES: Unremarkable. No enlarged lymph nodes. LIVER: The liver is enlarged. STOMACH AND BOWEL: Partially visualized gastric bypass. IMPRESSION: Bilateral pulmonary embolic disease with a lower lobe predominance. THIS REPORT CONTAINS FINDINGS THAT MAY BE CRITICAL TO PATIENT CARE: The findings were verbally discus sed via telephone conference with MORTEZA Victor on 01/17/2021 1:01 AM CDT. The results were ackno wledged and understood. Electronically signed by: Prince Hart MD 01/17/2021 1:02 AM CDT Due to temporary technical issues with the PACS/Fluency reporting system, reports are being signed by the in house radiologists without review as a courtesy to insure prompt reporting. The interpreting radiologist is fully responsible for the content of the report.
[2021-01-18] MEDS: ENOXAPARIN 30 MG/0.3 ML SQ SCH (02:16)
[2021-01-18 04:28] LABS: Absolute Lymphocytes (CBC) 1.8 K/uL (0.7-4.9); Basophils % 0.5 % (0-1.3); Hematocrit 36.1 % (36.0-45.0); Lymphocytes % 36.5 % (15.3-44.8); MPV 7.9 fL (7.6-11.3)
[2021-01-18 04:40] LABS: ALT/SGPT 33 U/L (12-78); AST/SGOT 27 U/L (15-37); Albumin 3.2 g/dL (3.4-5.0); Alkaline Phosphatase 74 U/L (45-117); BUN Blood Urea Nitrogen 7 mg/dL (7-18); Bicarbonate 26 mmol/L (21-32); Bilirubin Total 0.3 mg/dL (0.2-1.0); Glucose Level 101 mg/dL (74-106); Magnesium 2.5 mg/dL (1.8-2.4); Phosphorus 3.4 mg/dL (2.5-4.9); Potassium 3.6 mmol/L (3.5-5.1); Protein, Total 6.2 g/dL (6.4-8.2); Sodium Level 141 mmol/L (136-145)
[2021-01-18] MEDS ORDERED: POTASSIUM CL SA 10 MEQ TAB PO ONE (09:00)
[2021-01-18] MEDS: APIXABAN 5 MG TABLET PO SCH ×2 (10:20→21:48)
[2021-01-18 11:30] LABS: Folic Acid, (Folate) 8.4 ng/mL (3.1-17.5)
[2021-01-18 14:32] VITALS: O2SAT 97
[2021-01-18] MEDS: lisinopriL 10 MG TAB PO SCH (21:49)
[2021-01-18] MEDS: ZOLPIDEM TARTRATE 5 MG TABLET PO PRN (21:54)
[2021-01-19 06:23] LABS: Absolute Lymphocytes (CBC) 1.4 K/uL (0.7-4.9); Basophils % 0.2 % (0-1.3); Hematocrit 34.9 % (36.0-45.0); Lymphocytes % 29.5 % (15.3-44.8); MPV 8.1 fL (7.6-11.3); RBC Red Blood Cell Count 3.19 M/uL (3.86-4.86)
[2021-01-19 06:24] LABS: Protime INR 0.98
[2021-01-19 06:30] LABS: ALT/SGPT 30 U/L (12-78); AST/SGOT 22 U/L (15-37); Alkaline Phosphatase 67 U/L (45-117); BUN Blood Urea Nitrogen 10 mg/dL (7-18); Bicarbonate 26 mmol/L (21-32); Bilirubin Total 0.3 mg/dL (0.2-1.0); Glucose Level 97 mg/dL (74-106); Magnesium 2.4 mg/dL (1.8-2.4); Potassium 3.8 mmol/L (3.5-5.1); Protein, Total 6.1 g/dL (6.4-8.2); Sodium Level 142 mmol/L (136-145)
[2021-01-19 08:06] VITALS: BP 102/59; TEMP 98
--- NOTE | 2021-01-19 08:34 | P.PN ---
Subjective Date of Service: 01/18/21 Patient still having some pleuritic chest pain. Some concerns for infarction. However, patient clinical symptoms are stable. Hypoxemia is stable. Vital signs are stable. Anticipate discharge in the morning. Patient has Xarelto at the pharmacy and have encouraged her to take Xarelto as prescribed. She tell me is 50 mg twice a day for 3 weeks and 20 mg daily which is exactly how she supposed to take it. Hypercoagulable workup is pending. She will need to follow with PCP to get the results of this. Review of Systems 10-point ROS is otherwise unremarkable Physical Examination - Vital Signs Temperature: 98.0 F Blood Pressure: 102/59 Pulse: 72 Respirations: 17 Pulse Ox (%): 94 - Physical Exam General: Alert, In no apparent distress, Oriented x3 HEENT: Atraumatic, PERRLA, EOMI Neck: Supple, JVD not distended Respiratory: Clear to auscultation bilaterally, Normal air movement Cardiovascular: Regular rate/rhythm, Normal S1 S2 Gastrointestinal: Normal bowel sounds, No tenderness Musculoskeletal: No tenderness Integumentary: No rashes Neurological: Normal speech, Normal tone, Normal affect Lymphatics: No axilla or inguinal lymphadenopathy - Studies Medications List Reviewed: Yes Assessment & Plan - Problems (Diagnosis) (1) Pulmonary embolism Current Visit: Yes Status: Acute (2) Pleuritic chest pain Current Visit: Yes Status: Acute (3) DVT (deep venous thrombosis) Current Visit: Yes Status: Acute Qualifiers: DVT location: lower extremity Affected thrombotic vein of extremity: tibial Chronicity: acute Laterality: left Qualified Code(s): I82.442 - Acute embolism and thrombosis of left tibial vein (4) HTN (hypertension) Current Visit: Yes Status: Chronic Qualifiers: Hypertension type: primary hypertension Qualified Code(s): I10 - Essential (primary) hypertension - Plan Plan: 1. Continue with anti coagulation 2. Continue with pain control 3. Gentle hydration 4. Out of bed and ambulate 5. Hypercoagulable workup-patient has multiple brothers with blood clots. 6. GI and DVT prophylaxis Discharge Plan: Home Plan to discharge in: Greater than 2 days - Advance Directives Does patient have a Living Will: No Does patient have a Durable POA for Healthcare: No - Code Status/Comfort Care Code Status Assessed: Yes Code Status: Full Code Critical Care: No Time Spent Managing PTS Care (In Minutes): 35
--- NOTE | 2021-01-19 08:36 | P.DS ---
Discharge Date: 01/19/21 Primary Care Provider: Brendan Reason for Admission: PE, DVT - Problems (1) Pulmonary embolism Current Visit: Yes Status: Acute (2) Pleuritic chest pain Current Visit: Yes Status: Acute (3) DVT (deep venous thrombosis) Current Visit: Yes Status: Acute Qualifiers: DVT location: lower extremity Affected thrombotic vein of extremity: tibial Chronicity: acute Laterality: left Qualified Code(s): I82.442 - Acute embolism and thrombosis of left tibial vein (4) HTN (hypertension) Current Visit: Yes Status: Chronic Qualifiers: Hypertension type: primary hypertension Qualified Code(s): I10 - Essential (primary) hypertension Brief History of Present Illness: Ms. Mc is a 50 yo obese F with HTN who presents with increasing SOB. Yesterday, she had a venous doppler U/S of her lower extremities done which detected a DVT in the left calf posterior tibial vein. She was prescribed Xarelto by her PCP and was to pick it up from the pharmacy. At home she began to feel anxious and SOB. She noted that she had had increasing MONTANEZ over the past few days. CTPE returned bilateral pulmonary embolic disease with lower lobe predominance. She received full dose Lovenox in the ED. Hospital Course: Patient also has multiple family members with blood clots. At this time, patient is doing stable. 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 Discharge after Eliquis given this morning Vital Signs/Physical Exam: Temp Pulse Resp BP Pulse Ox 98.0 F 72 17 102/59 L 94 01/19/21 08:33 01/19/21 08:33 01/19/21 08:33 01/19/21 08:33 01/19/21 08:33 General: Alert, In no apparent distress, Oriented x3 Laboratory Data at Discharge: WBC 4.90 K/uL (4.3-10.9) 01/19/21 06:02 Hgb 11.8 g/dL (12.0-15.0) L 01/19/21 06:02 Hct 34.9 % (36.0-45.0) L 01/19/21 06:02 Plt Count 215 K/uL (152-406) 01/19/21 06:02 PT 11.3 SECONDS (9.5-12.5) 01/19/21 06:02 INR 0.98 01/19/21 06:02 APTT 30.1 SECONDS (24.3-36.9) 01/19/21 06:02 Sodium 142 mmol/L (136-145) 01/19/21 06:02 Potassium 3.8 mmol/L (3.5-5.1) 01/19/21 06:02 BUN 10 mg/dL (7-18) 01/19/21 06:02 Creatinine 0.59 mg/dL (0.55-1.3) 01/19/21 06:02 Glucose 97 mg/dL (74-106) 01/19/21 06:02 Phosphorus 3.4 mg/dL (2.5-4.9) 01/18/21 03:40 Magnesium 2.4 mg/dL (1.8-2.4) 01/19/21 06:02 Total Bilirubin 0.3 mg/dL (0.2-1.0) 01/19/21 06:02 AST 22 U/L (15-37) 01/19/21 06:02 ALT 30 U/L (12-78) 01/19/21 06:02 Alkaline Phosphatase 67 U/L (45-117) 01/19/21 06:02 Triglycerides 141 mg/dL (<150) 01/17/21 05:45 Cholesterol 213 mg/dL (<200) H 01/17/21 05:45 HDL Cholesterol 67 mg/dL (40-60) H 01/17/21 05:45 Cholesterol/HDL Ratio 3.18 01/17/21 05:45 Home Medications: Zolpidem Tartrate [Ambien] 10 mg PO BEDTIME PRN PRN 09/09/17 Amoxicillin [Amoxil] 1 tab PO BID 01/17/21 Duloxetine HCl [Cymbalta] 30 mg PO DAILY 01/17/21 Lisinopril [Zestril] 1 tab PO BEDTIME 01/17/21 Triamterene/Hydrochlorothiazid [Triamterene-Hctz 37.5-25 mg Tb] 1 tab PO DAILY 01/17/21 Physician Discharge Instructions: OK TO DC IV AND DC HOME FOLLOW-UP WITH PRIMARY CARE PROVIDER IN 1-2 WEEKS FOLLOW-UP WITH Hematology, Dr. TEE, in 1-2 weeks RETURN TO THE ER IF symptoms worsen CALL or TEXT DR. REGALADO AT [phone] IF ANY QUESTIONS REGARDING HOSPITAL STAY. PLEASE CALL THE FLOOR AT [phone] IF ANY MEDICATION OR NURSING QUESTIONS. Diet: Regular Activity: Fall precautions Followup: Fabricio Cardona DO, DO [Primary Care Provider] - Time spent managing pt's care (in minutes): 35
[2021-01-19] MEDS ORDERED: RIVAROXABAN 15 MG TABLET PO SCH (09:00)
[2021-01-20 06:07] LABS: RPR (Rapid Plasma Reagin) NON-REACT (NON-REACT)
[2021-01-22 14:21] LABS: Albumin, (SPE) 3.7 g/dL (3.8-4.8); Alpha-1-Globulins 0.4 g/dL (0.2-0.3); Alpha-2-Globulins 0.8 g/dL (0.5-0.9); Gamma Globulins 0.8 g/dL (0.8-1.7); INTERPRETATION REPORT
[2021-01-23 13:55] LABS: Protein C Antigen 132 % (70-140)
[2021-01-23 14:35] LABS: Prothrombin Gene Analysis Test REPORT
[2021-01-24 13:38] LABS: VITAMIN B1-THIAMINE 84 nmol/L (78-185)
== END 2021-01-19 10:12 | disposition home or self-care (01) | DRG 299 ==
LOC: ER 18:14 → 2ND 01-17 03:06
PROVIDERS: ADMIT Hospitalist; ATTEND Hospitalist
DX: I82.442 Acute embolism and thrombosis of left tibial vein (principal); I26.99 Other pulmonary embolism without acute cor pulmonale; I10 Essential (primary) hypertension
CPT/HCPCS: 36415; 71045; 71275; 80048; 80053; 80061; 80076; 81003; 81025; 81240; 81241; 82306; 82607; 82746; 83090; 83735; 83880; 84100; 84132; 84165; 84425; 84439; 84443; 84484; 85025; 85300; 85302; 85305; 85306; 85610; 85730; 86021; 86147; 86592; 93005; 94760; 96372; 99285; J1650; Q9967; U0003

== ENCOUNTER 2021-02-26 17:57 | Emergency (ER) | payer BC ==
--- NOTE | 2021-02-26 18:52 | ER ---
Nurse's Notes [facility] Name: Rhea Mc Age: 50 yrs Sex: Female : 1970 Arrival Date: 02/26/2021 Time: 18:19 Bed 9 Private MD: Diagnosis: Allergy status to unspecified drugs, medicaments and biological substances status-aspirin Presentation: 02/26 18:24 Chief complaint: EMS states: allergic rxn to asa. redness to the BLE and cyanosis bilat tc5 hands. pt states she got some excedrine from a co worker and did not realize it has asa in it as she is allergic. Coronavirus screen: Vaccine status: Patient reports being unvaccinated. At this time, the client does not indicate any symptoms associated with coronavirus-19. Ebola Screen: No symptoms or risks identified at this time. Risk Assessment: Do you want to hurt yourself or someone else? Patient reports no desire to harm self or others. Onset of symptoms was February 26, 2021 at 17:00. 18:24 Method Of Arrival: EMS: [facility] tc5 18:24 Acuity: RENA 3 tc5 Triage Assessment: 18:29 General: Appears in no apparent distress. Behavior is calm, cooperative, appropriate tc5 for age. Pain: Denies pain. EENT: No deficits noted. Neuro: No deficits noted. Cardiovascular: ble redness, bilat hand purple on fingers.. Respiratory: No deficits noted. Historical: - Home Meds: 18:27 Xarelto 20 mg oral tab [Active]; Ambien 10 mg Oral tab [Active]; tc5 - Immunization history:: Adult Immunizations up to date, Client reports having NOT received the Covid vaccine. Last tetanus immunization: > 10 years ago Flu vaccine is not up to date. - Social history:: Patient/guardian denies using. Screenin:32 Abuse screen: Denies threats or abuse. Denies injuries from another. Nutritional tc5 screening: No deficits noted. Tuberculosis screening: No symptoms or risk factors identified. Fall Risk None identified. Assessment: 18:30 Reassessment: No changes from previously documented assessment. 20g IV to left hand tc5 from EMS. 19:25 Reassessment: 1925, Pt sitting on bed, aaox4, states has a little nausea but is ok . tc5 Refuses offer of notifying MD to make aware. States she would like her IFV's to complete. Fluids placed high hanging on pole and is now infusing much quicker now. VSS. Voices no other needs . Call light within reach. In nad. Will complete ivfs and then discharge to home. 20:20 Reassessment: Pt states she is getting more nauseated and ask for anti nausea med. tc5 20:20 Reassessment: Pt given 4mg of zofran kinga Gayle RN vi vo Dr. hall. tc5 20:35 Reassessment: IVF's have completed, pt denies nausea at this time. Discharge paper tc5 reviewed and pt voices understanding. Vital Signs: 18:24 BP 110 / 69; Pulse 85; Resp 18; Temp 97.4; Pulse Ox 100% ; Weight 154.22 kg; Height 5 tc5 ft. 9 in. (175.26 cm); Pain 0/10; 19:25 BP 127 / 85; Pulse 88; Resp 18; Temp 98.0; Pulse Ox 100% ; Pain 0/10; tc5 18:24 Body Mass Index 50.21 (154.22 kg, 175.26 cm) tc5 ED Course: 18:19 Patient arrived in ED. iw 18:24 Vincent Lomeli MD is Attending Physician. bc 18:24 Aydee Reich, RANDAL is Primary Nurse. tc5 18:27 Triage completed. tc5 Administered Medications: 19:09 Drug: Benadryl (diphenhydrAMINE) 25 mg Route: IVP; Site: left hand; tc5 19:09 Drug: NS 0.9% 1000 ml Route: IV; Rate: 1 bolus; Site: left hand; tc5 20:35 Follow up: IV Status: Completed infusion; IV Intake: 1000ml tc5 19:10 Drug: SOLU-Medrol (methylPrednisoLONE) 125 mg Route: IVP; Site: left hand; tc5 19:10 Drug: predniSONE 60 mg Route: PO; tc5 19:10 Drug: Pepcid (famotidine) 40 mg Route: IVP; Site: left hand; tc5 Intake: 20:35 IV: 1000ml; Total: 1000ml. tc5 Outcome: 18:51 Discharge ordered by . bc 20:36 Discharged to home ambulatory. tc5 20:36 Condition: good 20:36 Discharge instructions given to patient, Instructed on discharge instructions, Demonstrated understanding of instructions. 20:37 Patient left the ED. tc5 Signatures: Vincent Lomeli MD MD cha Williams, Irene RN Aydee Lyman RN RN tc5
--- NOTE | 2021-02-26 18:52 | EDPHYS ---
Physician Documentation [facility] Name: Rhea Mc Age: 50 yrs Sex: Female : 1970 Arrival Date: 02/26/2021 Time: 18:19 Bed 9 Private MD: ED Physician Vincent Lomeli HPI: 02/26 18:43 This 50 yrs old Female presents to ER via EMS with complaints of took aspirin bc , allergic reaction. 18:43 This 50 yrs old Female presents to ER via EMS with complaints of allergic bc reaction, aspirin. 18:43 The patient presents with difficulty swallowing, itching, localized swelling, rash. bc Onset: The symptoms/episode began/occurred just prior to arrival. Associated signs and symptoms: Pertinent positives: shortness of breath. Possible causes: NSAIDs, aspirin. At home the patient or guardian has treated the symptoms with Benadryl. Severity of symptoms: At their worst the symptoms were moderate in the emergency department the symptoms have improved moderately. The patient has experienced similar episodes in the past, a few times. Historical: - Home Meds: 18:27 Xarelto 20 mg oral tab [Active]; Ambien 10 mg Oral tab [Active]; tc5 - Immunization history:: Adult Immunizations up to date, Client reports having NOT received the Covid vaccine. Last tetanus immunization: > 10 years ago Flu vaccine is not up to date. - Social history:: Patient/guardian denies using. ROS: 18:45 Constitutional: Negative for fever, chills, and weight loss, Eyes: Negative for injury, bc pain, redness, and discharge, Neck: Negative for injury, pain, and swelling, Cardiovascular: Negative for chest pain, palpitations, and edema, Respiratory: Negative for shortness of breath, cough, wheezing, and pleuritic chest pain, Abdomen/GI: Negative for abdominal pain, nausea, vomiting, diarrhea, and constipation, Back: Negative for injury and pain, : Negative for injury, bleeding, discharge, and swelling, MS/Extremity: Negative for injury and deformity, Skin: Negative for injury, rash, and discoloration, Neuro: Negative for headache, weakness, numbness, tingling, and seizure, Psych: Negative for depression, anxiety, suicide ideation, homicidal ideation, and hallucinations, Allergy/Immunology: Negative for hives, rash, and allergies, Endocrine: Negative for neck swelling, polydipsia, polyuria, polyphagia, and marked weight changes, Hematologic/Lymphatic: Negative for swollen nodes, abnormal bleeding, and unusual bruising. 18:45 ENT: Positive for difficulty swallowing, hoarseness. Exam: 18:45 Constitutional: This is a well developed, well nourished patient who is awake, alert, bc and in no acute distress. Head/Face: Normocephalic, atraumatic. Eyes: Pupils equal round and reactive to light, extra-ocular motions intact. Lids and lashes normal. Conjunctiva and sclera are non-icteric and not injected. Cornea within normal limits. Periorbital areas with no swelling, redness, or edema. ENT: Nares patent. No nasal discharge, no septal abnormalities noted. Tympanic membranes are normal and external auditory canals are clear. Oropharynx with no redness, swelling, or masses, exudates, or evidence of obstruction, uvula midline. Mucous membranes moist. Neck: Trachea midline, no thyromegaly or masses palpated, and no cervical lymphadenopathy. Supple, full range of motion without nuchal rigidity, or vertebral point tenderness. No Meningismus. Chest/axilla: Normal chest wall appearance and motion. Nontender with no deformity. No lesions are appreciated. Cardiovascular: Regular rate and rhythm with a normal S1 and S2. No gallops, murmurs, or rubs. Normal PMI, no JVD. No pulse deficits. Respiratory: Lungs have equal breath sounds bilaterally, clear to auscultation and percussion. No rales, rhonchi or wheezes noted. No increased work of breathing, no retractions or nasal flaring. Abdomen/GI: Soft, non-tender, with normal bowel sounds. No distension or tympany. No guarding or rebound. No evidence of tenderness throughout. Back: No spinal tenderness. No costovertebral tenderness. Full range of motion. Skin: Warm, dry with normal turgor. Normal color with no rashes, no lesions, and no evidence of cellulitis. MS/ Extremity: Pulses equal, no cyanosis. Neurovascular intact. Full, normal range of motion. Neuro: Awake and alert, GCS 15, oriented to person, place, time, and situation. Cranial nerves II-XII grossly intact. Motor strength 5/5 in all extremities. Sensory grossly intact. Cerebellar exam normal. Normal gait. Psych: Awake, alert, with orientation to person, place and time. Behavior, mood, and affect are within normal limits. 18:45 Musculoskeletal/extremity: DVT Exam: No signs of deep vein thrombosis. no pain, no swelling, no tenderness, negative Homans' sign noted on exam, no appreciated bluish discoloration, no erythema, no increased warmth. Vital Signs: 18:24 BP 110 / 69; Pulse 85; Resp 18; Temp 97.4; Pulse Ox 100% ; Weight 154.22 kg; Height 5 tc5 ft. 9 in. (175.26 cm); Pain 0/10; 19:25 BP 127 / 85; Pulse 88; Resp 18; Temp 98.0; Pulse Ox 100% ; Pain 0/10; tc5 18:24 Body Mass Index 50.21 (154.22 kg, 175.26 cm) tc5 MDM: 18:24 Patient medically screened. bc 18:46 Differential diagnosis: anaphylaxis, angioedema, bronchospasm, foreign body or airway bc obstruction Hereditary Angioedema urticaria. Data reviewed: vital signs, nurses notes, EMS record. Data interpreted: alarm security or surveillance monitor: rate is 85 beats/min, rhythm is regular, Pulse oximetry: on. Test interpretation: by ED physician or midlevel provider:. Counseling: I had a detailed discussion with the patient and/or guardian regarding: the historical points, exam findings, and any diagnostic results supporting the discharge/admit diagnosis, the need for outpatient follow up, for definitive care, an allergy/sustainability specialist, a family practitioner. Administered Medications: 19:09 Drug: Benadryl (diphenhydrAMINE) 25 mg Route: IVP; Site: left hand; tc5 19:09 Drug: NS 0.9% 1000 ml Route: IV; Rate: 1 bolus; Site: left hand; tc5 20:35 Follow up: IV Status: Completed infusion; IV Intake: 1000ml tc5 19:10 Drug: SOLU-Medrol (methylPrednisoLONE) 125 mg Route: IVP; Site: left hand; tc5 19:10 Drug: predniSONE 60 mg Route: PO; tc5 19:10 Drug: Pepcid (famotidine) 40 mg Route: IVP; Site: left hand; tc5 Disposition Summary: 02/26/21 18:51 Discharge Ordered Location: Home bc Problem: new bc Symptoms: have improved bc Condition: Stable bc Diagnosis - Allergy status to unspecified drugs, medicaments and biological substances status - [facility] aspirin Followup: bc - With: Private Physician - When: 2 - 3 days - Reason: Recheck today's complaints, Continuance of care, Re-evaluation by your physician Discharge Instructions: - Discharge Summary Sheet bc - Drug Allergy, [id number] bc - Drug Allergy bc - Angioedema bc - Angioedema, [id number] bc - Allergies, Adult, [id number] [facility] Forms: - Medication Reconciliation Form [facility] - Thank You Letter [facility] - Antibiotic Education [facility] - Prescription Opioid Use [facility] Prescriptions: - EpiPen 2-Art - inject 1 application by SUBCUTANEOUS route once daily; 1 Applicator; Refills: [facility] 0, Product Selection Permitted - Benadryl 25 mg Oral Capsule - take 2 capsule by ORAL route every 6 hours As needed; 36 tablet; Refills: 0, [facility] Product Selection Permitted - Pepcid 20 mg Oral Tablet - take 1 tablet by ORAL route every 12 hours for 10 days; 20 tablet; Refills: 0, [facility] Product Selection Permitted - Prednisone 20 mg Oral Tablet - take 2 tablets by ORAL route once daily for 5 days; 10 tablet; Refills: 0, [facility] Product Selection Permitted Signatures: Dispatcher [employer] Vincent Brandt MD MD cha Cassaboom, Theresa, RN RN tc5 Corrections: (The following items were deleted from the chart) 18:46 18:24 CBC+H.LAB.BRZ ordered. EDMS EDMS 18:46 18:24 COMPREHENSIVE METABOLIC PANEL+C.LAB.BRZ ordered. EDMS EDMS
[2021-02-26] MEDS ORDERED: METHYLPREDNISOLONE 125 MG INJ ONE (19:04)
[2021-02-26] MEDS ORDERED: predniSONE 20 MG TAB ONE (19:04)
[2021-02-26] MEDS ORDERED: NA CHLORIDE 0.9% 1,000 ML ONE (19:04)
[2021-02-26] MEDS ORDERED: DIPHENHYDRAMINE 50 MG/ML VIAL ONE (19:04)
[2021-02-26] MEDS ORDERED: FAMOTIDINE 20 MG/2 ML VIAL IV ONE (19:05)
[2021-02-26 20:41] VITALS: O2SAT 100
[2021-02-26 20:43] VITALS: BP 127/85; TEMP 98
[2021-02-26] MEDS ORDERED: ONDANSETRON 4 MG/2 ML VIAL ONE (20:45)
== END 2021-02-26 20:37 | disposition home or self-care (01) ==
LOC: ER 17:57
DX: R13.10 Dysphagia, unspecified (principal); Z88.6 Allergy status to analgesic agent; Z79.01 Long term (current) use of anticoagulants
CPT/HCPCS: 96361; 96375; 96374; 99283; J1200; J7030; J2930; J2405; J7512

== ENCOUNTER 2021-10-01 07:32 | Day surgery (SDC) | payer BC ==
[2021-10-01] MEDS ORDERED: Ringers Lactate 1,000 ML IV ONE (08:01)
[2021-10-01] MEDS ORDERED: propofoL 200 MG/20 ML VIAL IV ONE ×3 (10:25→10:51)
[2021-10-01] MEDS ORDERED: LIDOCAINE 1% MPF 5 ML VIAL ONE (10:25)
--- NOTE | 2021-10-01 10:54 | ENDO RPT ---
[address], [address] EGD PROCEDURE REPORT EXAM DATE: 10/01/2021 PATIENT NAME: Rhea Mc MR#: [id number] BIRTHDATE: 1970 ATTENDING: Jonah Buchanan Dr STATUS: outpatient ICT SUPPORT AND TEST ENGINEERS: Josey Gutierrez and Grace Hudson RN INDICATIONS: The patient is a 51 yr old Female here for an EGD due to right upper quadrant abdominal pain, nausea, bloating, and chronic unexplained diarrhea PROCEDURE PERFORMED: EGD with biopsy MEDICATIONS: Per Anesthesia. TOPICAL ANESTHETIC: none CONSENT: The patient understands the risks and benefits of the procedure and understands that these risks include, but are not limited to: sedation, allergic reaction, infection, perforation and/or bleeding. Alternative means of evaluation and treatment include, among others: physical exam, x-rays, and/or surgical intervention. The patient elects to proceed with this endoscopic procedure. DESCRIPTION OF PROCEDURE: During intra-op preparation period all mechanical medical equipment was checked for proper function. Hand hygiene and appropriate measures for infection prevention was taken. Procedure, possible complications, and alternatives including but not limited to the possibility of bleeding, perforation, tear, infection, sepsis, need for surgery, need for blood transfusion, and anesthesia related complications were explained to the patient. After the risks, benefits and alternatives of the procedure were thoroughly explained, Informed consent was verified, confirmed and timeout was successfully executed by the treatment team. The patient was placed in the left lateral position. The patient was anesthetized with topical anesthesia. Through the anesthetized oropharyngeal area, the scope was passed without any difficulty. The EG-[id number] ([id number]), [id number]-[id number] ([id number]), and [id number] ([id number]) endoscope was introduced through the mouth and advanced to the mid jejunum. Retroflexion was not performed. The gastroscope was then slowly withdrawn and removed. Post-operative gastric bypass changes in the fundus (GEJ at 35 cm, and gastro-jejunal anastomosis at 38 cm from the incisors) with efferent / afferent jejunal limbs was noted in the fundus. Normal mucosa was found in the fundus. Multiple biopsies were obtained and sent to pathology. ADVERSE EVENTS: There were no complications. IMPRESSIONS: 1. Post-operative gastric bypass changes in the fundus (GEJ at 35 cm, and gastro-jejunal anastomosis at 38 cm from the incisors) with efferent / afferent jejunal limbs 2. Normal mucosa in the fundus / gastric pouch, s/p biopsy 3. Small bowel biopsies obtained with history of chronic unexplained diarrhea RECOMMENDATIONS: 1. await biopsy results 2. acid suppression therapy REPEAT EXAM: Jonah Buchanan Dr eSigned: Jonah Buchanan Dr 10/01/2021 10:53 AM cc: Sadaf Cardona M.D. CPT CODES: ICD9 CODES: PATIENT NAME: Rhea Mc MR#: [id number]
[2021-10-01] MEDS ORDERED: FENTANYL CITR 100 MCG/2 ML ONE (10:56)
--- NOTE | 2021-10-01 11:20 | ENDO RPT ---
[address], [address] COLONOSCOPY PROCEDURE REPORT EXAM DATE: 10/01/2021 PATIENT NAME: Rhea Mc MR #: [id number] BIRTHDATE: 1970 ATTENDING: Jonah Buchanan Dr STATUS: outpatient ORDER CHECKER: Grace Hudson RN and Josey Gutierrez INDICATIONS: The patient is a 51 yr old Female here for a colonoscopy due to change in bowel habits and unexplained chronic diarrhea PROCEDURE PERFORMED: Colonoscopy with biopsy MEDICATIONS: Per Anesthesia. ESTIMATED BLOOD LOSS: None CONSENT: The patient understands the risks and benefits of the procedure and understands that these risks include, but are not limited to: sedation, allergic reaction, infection, perforation and/or bleeding. Alternative means of evaluation and treatment include, among others: physical exam, x-rays, and/or surgical intervention. The patient elects to proceed with this endoscopic procedure. DESCRIPTION OF PROCEDURE: During intra-op preparation period all mechanical medical equipment was checked for proper function. Hand hygiene and appropriate measures for infection prevention was taken. Procedure, possible complications, alternatives including, but not limited to possibility of bleeding, perforation, tear, infection, sepsis, need for surgery, need for blood transfusion, were explained to the patient. After the risks, benefits and alternatives of the procedure were thoroughly explained, Informed consent was verified, confirmed and timeout was successfully executed by the treatment team. The patient was placed in the left lateral position. A digital rectal exam was performed and revealed no abnormalities of the rectum. After appropriate level of anesthesia, the scope was passed. The EC-[id number] ([id number]) and EC-[id number] ([id number]) endoscope was introduced through the anus and advanced to the terminal ileum which was intubated for a short distance. The quality of the prep was good. The instrument was then slowly withdrawn as the colon was fully examined. Scope withdrawal time was 8 minutes. COLON FINDINGS: Random biopsies of the right colon / left colon / rectum obtained with history of chronic unexplained diarrhea. Small internal hemorrhoids were found. Retroflexed views revealed small hemorrhoids. The scope was then completely withdrawn from the patient and the procedure terminated. ADVERSE EVENTS: There were no complications. IMPRESSIONS: 1. Random biopsies of the right colon / left colon / rectum obtained with history of chronic unexplained diarrhea 2. Small internal hemorrhoids 3. Intubation to terminal ileum RECOMMENDATIONS: 1. await biopsy results 2. yearly hemoccult starting in 4 years RECALL: Return in 10 year(s) for Colonoscopy. Jonah Buchanan Dr eSigned: Jonah Buchanan Dr 10/01/2021 11:20 AM cc: Sadaf Cardona CPT CODES: ICD9 CODES: PATIENT NAME: Rhea McRajni MR#: [id number]
[2021-10-01 12:04] VITALS: O2SAT 100
[2021-10-01 12:05] VITALS: BP 146/86; TEMP 98.6
[2021-10-01 12:27] LABS: Urine Appearance CLEAR (Clear); Urine Bilirubin NEGATIVE (Negative); Urine Blood NEGATIVE (Negative); Urine Color YELLOW (Yellow); Urine Glucose NEGATIVE (Negative); Urine Specific Gravity 1.015 (1.005-1.030)
[2021-10-01 12:28] LABS: Urine Microscopic Reflex NO UMIC; Urine Protein NEGATIVE (Negative); Urine Urobilinogen 0.2 mg/dL (0.2-1.0)
== END 2021-10-01 12:10 | disposition home or self-care (01) ==
LOC: OR 07:32
PROVIDERS: ATTEND Internal Medicine Gastroenterology
PROC: 0DBF8ZX Excision of Right Large Intestine, Via Natural or Artificial Opening Endoscopic, Diagnostic (ICD-10-PCS; 2021-10-01)
PROC: 0DB68ZX Excision of Stomach, Via Natural or Artificial Opening Endoscopic, Diagnostic (ICD-10-PCS; 2021-10-01)
PROC: 0DB88ZX Excision of Small Intestine, Via Natural or Artificial Opening Endoscopic, Diagnostic (ICD-10-PCS; 2021-10-01)
PROC: 0DBG8ZX Excision of Left Large Intestine, Via Natural or Artificial Opening Endoscopic, Diagnostic (ICD-10-PCS; principal; 2021-10-01 09:00)
PROC: 0DBP8ZX Excision of Rectum, Via Natural or Artificial Opening Endoscopic, Diagnostic (ICD-10-PCS; 2021-10-01 09:00)
DX: K29.50 Unspecified chronic gastritis without bleeding (principal); R19.4 Change in bowel habit; R19.7 Diarrhea, unspecified; R11.0 Nausea; R14.0 Abdominal distension (gaseous); G47.00 Insomnia, unspecified; K64.8 Other hemorrhoids; Z20.822 Contact with and (suspected) exposure to COVID-19
CPT/HCPCS: 88312; 88305; 81003; 45380; 43239; U0003; J2704 ×2; J3010; J7120